=== PATIENT | male | born 1995 | race African-American/Black ===

== ENCOUNTER 2019-06-15 17:08 | Emergency (ER) | payer SELFPAY ==
[2019-06-15] MEDS ORDERED: methylPREDNISolone 125 MG* 2 ML VIAL IV ONE (17:27)
[2019-06-15] MEDS ORDERED: Famotidine IV* 10 MG/ML 2 ML (20 mg) IV SLOW PU ONE (17:27)
[2019-06-15] MEDS ORDERED: diPHENhydraMINE IV* 50 MG/ML 1 ml VIAL (BENADRYL) IV ONE (17:27)
[2019-06-15] MEDS ORDERED: Albuterol 2.5 MG/3 ML NEB.SOL* (0.083%) INH ONE (17:28)
[2019-06-15] MEDS ORDERED: NS 0.9% 1000 ML** 1,000 ML IV ONE (17:28)
--- NOTE | 2019-06-15 18:19 | ED ---
Allergic Reaction/Systemic - HPI Summary HPI Summary: 23-year-old male presents with potentially allergic reaction today. He took a dose of ibuprofen and started to notice some facial swelling afterwards. He admits to some chest tightness. He has history asthma. He admits to a sore throat. No difficulty swallowing. No abdominal pain. No nausea or vomiting. He has never had this reaction before. He has not taking anything for his symptoms. - History of Current Complaint Chief Complaint: EDAllergicReaction Time Seen by Provider: 06/15/19 17:22 Pain Intensity: 0 - Allergies/Home Medications Allergies/Adverse Reactions: Allergies Allergy/AdvReac Type Severity Reaction Status Date / Time ibuprofen [From Motrin] Allergy Unknown Verified 06/15/19 17:22 Reaction Details PMH/Surg Hx/FS Hx/Imm Hx Endocrine/Hematology History: Denies: Hx Anticoagulant Therapy Respiratory History: Reports: Hx Asthma Infectious Disease History: No Infectious Disease History: Denies: Traveled Outside the [place] in Last 30 Days - Family History Known Family History: Positive: Non-Contributory - Social History Alcohol Use: Rare Substance Use Type: Reports: Marijuana Smoking Status (MU): Never Smoked Tobacco Review of Systems Negative: Fever Positive: Sore Throat, Other - facial swelling Negative: Chest Pain Positive: Shortness Of Breath All Other Systems Reviewed And Are Negative: Yes Physical Exam Triage Information Reviewed: Yes Vital Signs On Initial Exam: Initial Vitals Temp Pulse Resp BP Pulse Ox 98.2 F 60 18 129/75 98 06/15/19 17:15 06/15/19 17:15 06/15/19 17:15 06/15/19 17:15 06/15/19 17:15 Vital Signs Reviewed: Yes Appearance: Positive: Well-Appearing Skin: Positive: Warm, Dry, Other - mild facial swelling noted Head/Face: Positive: Normal Head/Face Inspection Eyes: Positive: Normal, EOMI, BILLY, Conjunctiva Clear ENT: Positive: Pharynx normal, TMs normal Respiratory/Lung Sounds: Positive: Clear to Auscultation, Breath Sounds Present Cardiovascular: Positive: Normal, RRR Musculoskeletal: Positive: Normal Neurological: Positive: Normal Psychiatric: Positive: Normal Procedures - Sedation Patient Received Moderate/Deep Sedation with Procedure: No Diagnostics - Vital Signs Vital Signs Temp Pulse Resp BP Pulse Ox 06/15/19 17:44 60 15 98 06/15/19 17:15 98.2 F 60 18 129/75 98 - Laboratory Lab Statement: Any lab studies that have been ordered have been reviewed, and results considered in the medical decision making process. Re-Evaluation - Re-Evaluation First Eval Re-Evaluation Time: 19:17 Change: Improved Comment: lungs CTA, pharynx normal Second Eval Re-Evaluation Time: 19:43 Change: Unchanged Comment: lungs CTA Allergic Reaction Course/Dx - Course Course Of Treatment: 23-year-old male presents with potentially allergic reaction today. He took a dose of ibuprofen and started to notice some facial swelling afterwards. He admits to some chest tightness. He has history asthma. He admits to a sore throat. No difficulty swallowing. No abdominal pain. No nausea or vomiting. He has never had this reaction before. He has not taking anything for his symptoms. On exam lungs clear. Heart regular rate and rhythm. Pharynx normal. Mild facial swelling noted. Gave Benadryl solumedrol and Pepcid and will improvement. will discharge with prednisone. patient understand and agrees with plan. - Diagnoses Differential Diagnosis/HQI/PQRI: Positive: Anaphylaxis, Local Allergic Reaction , Urticaria Provider Diagnoses: Allergic reaction Discharge ED - Sign-Out/Discharge Documenting (check all that apply): Patient Departure - Discharge Plan Condition: Good Disposition: HOME Prescriptions: predniSONE 50 mg TAB [Deltasone 50 mg TAB] 50 mg PO DAILY #4 tab Patient Education Materials: General Allergic Reaction (ED) Referrals: [facility] [Outside] Additional Instructions: Take Benadryl every 6 hours as needed for itching or swelling Take steroid once a day for 4 days starting tomorrow establish care with primary avoid ibuprofen in the future Return to ED if develop any new or worsening symptoms - Billing Disposition and Condition Condition: GOOD Disposition: Home
[2019-06-15 20:20] VITALS: BP 137/80
== END 2019-06-15 20:19 | disposition home or self-care (01) ==
LOC: ED 17:08
DX: T78.40XA Allergy, unspecified, initial encounter (principal); J02.9 Acute pharyngitis, unspecified; R06.02 Shortness of breath; X58.XXXA Exposure to other specified factors, initial encounter
CPT/HCPCS: 93005; 96374; 96375; 99282; J1200; J2930